=== PATIENT | male | born 1990 | race African-American/Black ===

== ENCOUNTER 2019-04-15 09:01 | Emergency (ER) | payer OTHER ==
[~2019-04-15] VITALS: Ht 167.6 cm; Wt 72.7 kg
[2019-04-15 10:20] VITALS: BP 133/82
== END 2019-04-15 10:20 | disposition home or self-care (01) ==
LOC: EMS 09:08
DX: N48.89 Other specified disorders of penis (principal); I10 Essential (primary) hypertension; F19.90 Other psychoactive substance use, unspecified, uncomplicated; F17.210 Nicotine dependence, cigarettes, uncomplicated
CPT/HCPCS: 99406